=== PATIENT | female | born 1975 | race Caucasian/White ===

== ENCOUNTER 2016-03-09 07:53 | Day surgery (SDC) | payer OTHER ==
[2016-03-09] MEDS ORDERED: LISI2.5T3 PO (08:27)
[2016-03-09] MEDS ORDERED: BUPR150XL PO (08:28)
[2016-03-09] MEDS ORDERED: LAMO150 PO (08:28)
[2016-03-09] MEDS ORDERED: METO25TA3 PO (10:56)
[2016-03-09] MEDS ORDERED: PILL SPLITTER OTHER PRN (11:15)
[2016-03-09] MEDS ORDERED: METOPROLOL TARTRATE 25 MG TAB PO SCH (21:00)
--- NOTE | 2016-03-15 16:25 | CT ---
cc: ERIC ONEIL MD DATE: 03/09/2015 TILT TABLE TEST INDICATIONS Syncope. PROCEDURE The patient started in a flat resting position. EKG was performed. Initial blood pressure 128/82 mmHg, heart rate 93 beats per minute. The patient was then tilted to 80 degrees. EKG repeated, no changes. Blood pressure remained stable throughout that time. The patient was asymptomatic. The patient received 0.4 mg of sublingual nitroglycerin while tilted up to 80 degrees. Heart rate initially increased to 132 beats per minute sinus tachycardia with a blood pressure at that time 111/68 mmHg, then subsequently within the next minute, blood pressure dropped down to 78/54 mmHg and the patient had a syncopal episode. She was unconscious for approximately 1 minute before returning back to her usual state of alert. Blood pressure and heart rate then normalized. EKG remained unchanged. CONCLUSION Positive tilt table test. PLAN We encouraged aggressive hydration, liberation of salt intake. We will start her on low-dose beta amy and hold her lisinopril. If this does not make much of a difference we may have to consider midodrine as her blood pressure is already on the low side. Eric Oneil MD SM/KK /10:57 AM /4:20 PM
== END 2016-03-09 11:25 | disposition home or self-care (01) ==
LOC: HBDO 07:53 → HDIC 07:59 → HBDO 11:25
PROVIDERS: ATTEND Internal Medicine
DX: R42 Dizziness and giddiness (principal)
CPT/HCPCS: 93660